=== PATIENT | male | born 1975 | race Caucasian/White ===

== ENCOUNTER → 2017-09-19 | Outpatient (CLI) | payer OTHER ==
[~2017-09-19] MED LIST: AVONEX PEN30 MCG/0.5 IM; CEPH500 PO; DIPH50 PO; Doxycycline Hy100 MG PO; HYDACE5 PO; METPRE4DP PO; NAPR500 PO; Pepcid40 MG PO
== END | disposition home or self-care (01) ==
LOC: LAB SHORT 10:27 → PLD 10:27
DX: L82.1 Other seborrheic keratosis (principal)
CPT/HCPCS: 88305

== ENCOUNTER → 2020-12-30 | Outpatient (CLI) | payer OTHER | LOC: LAB 11:12 → LAB SHORT 11:12 | DX: D48.5 Neoplasm of uncertain behavior of skin (principal) | CPT/HCPCS: 88305 ==

== ENCOUNTER → 2021-01-10 | Outpatient (CLI) | payer OTHER | END | disposition home or self-care (01) | LOC: LAB SHORT 14:51 | DX: D03.21 Melanoma in situ of right ear and external auricular canal (principal) | CPT/HCPCS: 88305 ==

== ENCOUNTER → 2021-09-20 | Outpatient (CLI) | payer OTHER | END | disposition home or self-care (01) | LOC: PLD 07:37 → LAB SHORT 07:37 | DX: D22.39 Melanocytic nevi of other parts of face (principal) | CPT/HCPCS: 88305 ==

== ENCOUNTER 2024-12-07 18:43 | Emergency (ER) | payer OTHER ==
[~2024-12-07] VITALS: Ht 172.7 cm; Wt 84.8 kg
[2024-12-07 18:56] VITALS: BP 131/91
[2024-12-07] MEDS ORDERED: Fluorescein Sod 1MG Opth Strips RIGHTEYE ONE (20:30)
[2024-12-07] MEDS ORDERED: Tetracaine HCl/Pf 0.5% Opth Soln 4 ml RIGHTEYE ONE (20:30)
[2024-12-07] MEDS ORDERED: Erythromycin 0.5% Opth Oint 1 gm RIGHTEYE ONE (21:05)
[2024-12-07] MEDS ORDERED: Ofloxacin 0.3% Opth Soln 5 ML RIGHTEYE ONE (21:05)
[2024-12-07] MEDS ORDERED: OCUFLOX510 RIGHTEYE (21:08)
[2024-12-07] MEDS ORDERED: ERYT1OIN RIGHTEYE (21:08)
== END 2024-12-07 21:18 | disposition home or self-care (01) ==
LOC: ER 18:43
DX: S05.01XA Injury of conjunctiva and corneal abrasion without foreign body, right eye, initial encounter (principal); G35 Multiple sclerosis; Z91.018 Allergy to other foods; Z79.52 Long term (current) use of systemic steroids; Z79.899 Other long term (current) drug therapy; W22.8XXA Striking against or struck by other objects, initial encounter
CPT/HCPCS: 90471; 90715; 99283-25; A9270

== ENCOUNTER 2025-01-20 02:05 | Observation (INO) | payer OTHER ==
[~2025-01-20] VITALS: Ht 172.7 cm; Wt 83.9 kg
[~2025-01-20 02:05] MED LIST changes: +ERYT1OIN RIGHTEYE; +OCUFLOX510 RIGHTEYE
[2025-01-20] MEDS ORDERED: Ondansetron HCl 2 MG / ML 2ML Vial IV PRN (02:30)
[2025-01-20 02:46] LABS: BASOPHILS ABSOLUTE AUTO 0.05 K/mm3 (0.00-0.23); BASOPHILS PERCENT AUTO 1 % (0-2); EOSINOPHILS ABSOLUTE AUTO 0.10 K/mm3 (0.00-0.68); EOSINOPHILS PERCENT AUTO 2 % (0-6); Hematocrit 45.7 % (37.0-53.0); Hemoglobin 15.4 g/dL (13.5-17.5); IMMATURE GRAN ABSOLUTE AUTO 0.01 K/mm3 (0.00-0.10); IMMATURE GRAN PERCENT AUTO 0 % (0-1); LYMPHOCYTES ABSOLUTE AUTO 0.73 K/mm3 (0.84-5.20); LYMPHOCYTES PERCENT AUTO 14 % (21-46); MONOCYTES ABSOLUTE AUTO 0.74 K/mm3 (0.16-1.47); MONOCYTES PERCENT AUTO 15 % (4-13); Mean Corpuscular HGB Conc 33.7 g/dL (31.5-36.5); Mean Corpuscular Volume 87 fL (80-100); NEUTROPHILS ABSOLUTE AUTO 3.45 K/mm3 (1.96-9.15); NEUTROPHILS PERCENT AUTO 68 % (41-73); NRBC ABSOLUTE 0.00 K/mm3 (0.00-0.02); NRBC Auto 0.0 /100 WBC (0.0-0.2); Platelet Count 181 K/mm3 (150-400); RDW Coefficient Variation 13.3 % (11.7-14.2); RDW Standard Deviation 42.6 fL (35.1-46.3)
[2025-01-20 03:06] LABS: Alanine Aminotransfer (ALT/SGP 50.0 U/L (12-78); Albumin, Blood 4.0 g/dL (3.4-5.0); Albumin/Globulin Ratio 1.3 (0.8-1.8); Anion Gap 10.0 mmol/L (3-11); Aspartate Aminotrans (AST/SGOT 23.0 U/L (12-37); Bilirubin, Total 0.3 mg/dL (0.1-1.0); Blood Urea Nitrogen 15.0 mg/dL (8-24); CO2, Blood 26.0 mmol/L (21-32); Calcium, Blood 8.7 mg/dL (8.5-10.1); Chloride, Blood 108.0 mmol/L (98-108); Creatinine, Blood 0.91 mg/dL (0.60-1.20); Globulin, Blood 3.1 g/dL (2.2-4.0); Glucose, Blood 88.0 mg/dL (70-99); Potassium, Blood 3.9 mmol/L (3.5-5.5); Sodium, Blood 140.0 mmol/L (136-145); Total Protein, Blood 7.1 g/dL (6.4-8.2)
[2025-01-20] MEDS ORDERED: NS 1,000 ML IV SCH (04:40)
[2025-01-20 04:53] LABS: Magnesium, Blood 2.0 mg/dL (1.6-2.4); Phosphorus, Blood 2.8 mg/dL (2.5-4.9)
[2025-01-20] MEDS ORDERED: FLU VACC TS2025-26(6MOS UP)/PF 45 MCG/0.5 ML SYRINGE IM SCH (05:40)
[2025-01-20 07:40] VITALS: BP 119/86
--- NOTE | 2025-01-20 07:45 | NUR ---
PT ARRIVES TO THE UNIT AT 0740. PT AMBULATES W/ EASE FROM GURNEY TO BED. PT , ARIADNA W/ PT. PT IS ALERT, ORIENTED AND PLEASANT WITH CARE. PT DENIES CP OR SOB. PT ON ROOM AIR, O2 SATS 100%. LUNGS CLEAR. NSR ON MONITOR, RATE OF 80S. BP STABLE W/ SYSTOLICS IN THE 110S AND MAP>65. PT AFEBRILE. USING RESTROOM INDPENDENTLY. PIV PATENT, SALINE LOCKED. CALL LIGHT W/ IN REACH. BED IN LOWEST LOCKED POSITION. PT PENDING ECHO TODAY. PLAN OF CARE ONGOING
[2025-01-20] MEDS ORDERED: AVONEX PEN30 MCG/0.8 IM (07:57)
[2025-01-20] MEDS ORDERED: NAPR500EC PO (07:57)
--- NOTE | 2025-01-20 10:50 | NUR ---
DR. HURD TO ROOM TO DISCUSS POC. POSSIBLE DISCHARGE W/ SOOT BLOWER LATER TODAY DISCUSSED PENDING ECHO RESULTS. PT AND ARE AGREEABLE.
[2025-01-20 12:31] VITALS: BP 129/83
--- NOTE | 2025-01-20 14:13 | NUR ---
DR. HURD TO ROOM TO DISCUSS ECHO RESULTS AND DISCHARGE. PT AND FAMILY ARE AGREEABLE. [facility] CON[facility]. PT TO DC HOME AFTER APPLICATION AND FOLLOW UP W/ PCP IN 3 DAYS. PT TO FOLLOW UP W/ PCP AGAIN AFTER ZIO PATCH RESULTS ARE AVAILABLE. PT VERBALIZED UNDERSTANDING. WRITTEN AND VERBAL DIRECTIONS FOR DISCHARGE PROVIDED. PT DENIES FURTHER NEEDS. NO NEW MEDICATIONS PRESCRIBED. RETURN TO ED SYMPTOMS DISCUSSED.
[2025-01-20 14:38] VITALS: BP 123/90
== END 2025-01-20 15:30 | disposition home or self-care (01) ==
LOC: ER 02:05 → ERHOLD 02:06 → PCU 07:49
PROVIDERS: Emergency Medicine; ADMIT Student in an Organized Health Care Education/Training Program
DX: I48.91 Unspecified atrial fibrillation (principal); R55 Syncope and collapse; G35.D Multiple sclerosis, unspecified; D68.00 Von Willebrand disease, unspecified; M47.814 Spondylosis without myelopathy or radiculopathy, thoracic region; Z88.1 Allergy status to other antibiotic agents; Z91.018 Allergy to other foods
CPT/HCPCS: 71046; 80053; 83690; 83735; 84100; 84443; 84484; 85025; 85379; 93005; 93010; 93246; 93306; 99285-25; G0378; J7030

== ENCOUNTER 2025-03-06 18:54 | Emergency (ER) | payer OTHER ==
[~2025-03-06] VITALS: Ht 172.7 cm; Wt 86.2 kg
[~2025-03-06 18:54] MED LIST changes: +AVONEX PEN30 MCG/0.8 IM; +NAPR500EC PO
[2025-03-06 19:41] LABS: BASOPHILS ABSOLUTE AUTO 0.06 K/mm3 (0.00-0.23); BASOPHILS PERCENT AUTO 1 % (0-2); EOSINOPHILS ABSOLUTE AUTO 0.12 K/mm3 (0.00-0.68); EOSINOPHILS PERCENT AUTO 2 % (0-6); Hematocrit 45.4 % (37.0-53.0); Hemoglobin 15.9 g/dL (13.5-17.5); IMMATURE GRAN ABSOLUTE AUTO 0.04 K/mm3 (0.00-0.10); IMMATURE GRAN PERCENT AUTO 1 % (0-1); LYMPHOCYTES ABSOLUTE AUTO 2.29 K/mm3 (0.84-5.20); LYMPHOCYTES PERCENT AUTO 34 % (21-46); MONOCYTES ABSOLUTE AUTO 0.95 K/mm3 (0.16-1.47); MONOCYTES PERCENT AUTO 14 % (4-13); Mean Corpuscular HGB Conc 35.0 g/dL (31.5-36.5); Mean Corpuscular Volume 85 fL (80-100); NEUTROPHILS ABSOLUTE AUTO 3.23 K/mm3 (1.96-9.15); NEUTROPHILS PERCENT AUTO 48 % (41-73); NRBC ABSOLUTE 0.00 K/mm3 (0.00-0.02); NRBC Auto 0.0 /100 WBC (0.0-0.2); RDW Coefficient Variation 13.4 % (11.7-14.2); RDW Standard Deviation 41.2 fL (35.1-46.3)
[2025-03-06 20:00] LABS: Alanine Aminotransfer (ALT/SGP 92.0 U/L (12-78); Albumin, Blood 4.4 g/dL (3.4-5.0); Albumin/Globulin Ratio 1.2 (0.8-1.8); Anion Gap 8.0 mmol/L (3-11); Aspartate Aminotrans (AST/SGOT 36.0 U/L (12-37); Bilirubin, Total 0.4 mg/dL (0.1-1.0); Blood Urea Nitrogen 15.0 mg/dL (8-24); CO2, Blood 27.0 mmol/L (21-32); Calcium, Blood 9.7 mg/dL (8.5-10.1); Chloride, Blood 104.0 mmol/L (98-108); Creatinine, Blood 0.99 mg/dL (0.60-1.20); Globulin, Blood 3.6 g/dL (2.2-4.0); Glucose, Blood 111.0 mg/dL (70-99); Potassium, Blood 3.5 mmol/L (3.5-5.5); Sodium, Blood 135.0 mmol/L (136-145); Total Protein, Blood 8.0 g/dL (6.4-8.2)
[2025-03-06 20:26] LABS: Prothrombin Time Results 12.5 Sec (9.7-11.5)
[2025-03-07 00:12] VITALS: BP 127/95
== END 2025-03-07 00:16 | disposition home or self-care (01) ==
LOC: ER 18:54
PROVIDERS: Student in an Organized Health Care Education/Training Program
DX: R00.2 Palpitations (principal); Z88.1 Allergy status to other antibiotic agents; Z91.018 Allergy to other foods; Z79.899 Other long term (current) drug therapy
CPT/HCPCS: 71046; 80053; 83880; 84484; 85025; 85610; 85730; 93005; 93010; 99285-25